=== PATIENT | female | born 1995 | race Caucasian/White ===

== ENCOUNTER 2024-10-24 10:08 | Emergency (ER) | payer MEDICAID, OTHER ==
[2024-10-24] MEDS ORDERED: Ketorolac Tromethamine 30 MG (1 mL) VIAL ONE (10:35)
== END 2024-10-24 11:21 | disposition home or self-care (01) ==
LOC: ERS 10:08
DX: S06.0X0A Concussion without loss of consciousness, initial encounter (principal); Z55.0 Illiteracy and low-level literacy; F17.290 Nicotine dependence, other tobacco product, uncomplicated; X58.XXXA Exposure to other specified factors, initial encounter
CPT/HCPCS: 70450; 70486; 72125; 96372; J1885